=== PATIENT | female | born 1965 | race Caucasian/White ===

== ENCOUNTER 2020-10-21 00:11 | Outpatient (CLI) | payer MEDICARE, SELFPAY ==
[2020-10-21 17:38] LABS: SARS-CoV-2 RNA PCR Negative
== END 2020-10-21 00:12 | disposition home or self-care (01) ==
LOC: ANHCOVIDDT 00:11
PROVIDERS: PCP Physician Assistant; Visit Provider Internal Medicine Gastroenterology
DX: Z01.812 Encounter for preprocedural laboratory examination (principal); Z20.822 Contact with and (suspected) exposure to COVID-19
CPT/HCPCS: C9803; U0003; U0005

== ENCOUNTER 2020-10-24 00:42 | Day surgery (SDC) | payer MEDICARE, SELFPAY ==
[2020-10-10 12:14] VITALS: BMI 33.3
--- NOTE | 2020-10-10 12:34 | PC.NURSE ---
During pre-op interview, patient stated she takes Meloxicam 15 mg daily. Pt. unaware of whether or not to hold prior to colonoscopy as she did not have Dr. Antoine paperwork and instructions in front of her. Instructed patient to call Dr. Antoine's office and inquire about need to hold Meloxicam prior to procedure. Pt. states she will call office. Aleksander Craven RN.
[2020-10-24 11:23] VITALS: BP 182/86; PULSE 66; RESP 18; TEMP 36.7; O2SAT 99; BMI 33.5
[2020-10-24] MEDS: LACTATED RINGERS 1,000 ML 150 ML IV CONT (11:28)
--- NOTE | 2020-10-24 11:56 | PM.IMHP ---
H&P: [facility] History of Present Illness Date/Time: 10/24/20 11:56 Chief Complaint: Reason for visit is colonoscopy. Narrative: Reason for visit is colonoscopy. This very pleasant lady seen in consultation request the primary physician. Impression: Screening colonoscopy. Patient has a history of non adenomatous polyps. HTN. HLD. Tobacco abuse. Obesity. Recommendation: Colonoscopy. History: This very pleasant lady's here for screening colonoscopy. GI review systems negative. She has a previous history of non adenomatous colon polyps. She is here for colonoscopy. Physical examination: General: very pleasant patient in no acute distress. HEENT: Head was normocephalic sclerae is clear mouth without masses neck was supple. Heart: Rate rhythm regular without S3 or S4. Lungs: Occasional expiratory wheeze. Abdomen: Soft with no guarding or rigidity. Bowel sounds were active. Neurologic: Cranial nerves 2 through 12 intact. No focal defects. No clonus. Musculoskeletal system: Revealed no joint tenderness or swelling no muscle atrophy. Extremities: Reveal no significant edema. Skin: Warm and dry with normal turgor. Mental status: intact. Patient is alert and oriented. Review of Systems Review of Systems: All systems reviewed & are unremarkable except as noted in HPI and below PMFSH Past Medical History Medical History (Updated 10/24/20 @ 11:56 by Willem Antoine DO) Hyperlipidemia Hypertension Obesity Tobacco abuse Surgical History Surgical History (Updated 10/24/20 @ 11:56 by Willem Antoine DO) H/O colonoscopy with polypectomy History of hysterectomy Social History Social History Smoking packs per day: 1 Smoking cigarettes per day: 20.0 Years smoked: 39 Smoking pack-years: 39.00 Smoking status: Current every day smoker Tobacco type: cigarettes Alcohol use details: very rarely Living arrangements: with family Gender identity (if verbalized by the patient): Female Spiritual care concerns: No Meds Home Medications and Allergies Home Medications Medication Instructions Recorded Confirmed Type ascorbic acid (vitamin C) [Vitamin 500 mg PO DAILY 10/10/20 10/10/20 History C] cinnamon bark [Cinnamon] 500 mg PO DAILY 10/10/20 10/10/20 History estradiol 0.5 mg PO QPM 10/10/20 10/10/20 History gabapentin 600 mg PO TID 10/10/20 10/10/20 History lisinopril 40 mg PO QPM 10/10/20 10/10/20 History lovastatin 20 mg PO QPM 10/10/20 10/10/20 History meloxicam 15 mg PO DAILY 10/10/20 10/24/20 History turmeric 400 mg PO DAILY 10/10/20 10/10/20 History vit C-vit [id number] 1 cap PO DAILY 10/10/20 10/10/20 History [Ocuvite] Allergies Allergy/AdvReac Type Severity Reaction Status Date / Time Aminoglycosides Allergy Unknown Rash Verified 10/24/20 11:12 bacitracin Allergy Unknown Rash Verified 10/24/20 11:12 NEOMYCIN SULFATE (Generic Allergy Unknown Y Uncoded 10/24/20 11:12 Allergy) POLYMYXINBSULF Allergy Unknown Rash Uncoded 10/24/20 11:12 Vital Signs Vital Signs - 24 hr 10/24/20 11:23 Temperature 36.7 C Pulse Rate 66 Respiratory Rate 18 Blood Pressure 182/86 H Pulse Oximetry 99
[2020-10-24 12:16] VITALS: BP 138/76; PULSE 86; RESP 21; O2SAT 99
[2020-10-24 12:26] VITALS: BP 150/76; PULSE 83; RESP 21; O2SAT 98
[2020-10-24 12:36] VITALS: BP 147/83; PULSE 61; RESP 24; O2SAT 99
== END 2020-10-24 13:01 | disposition home or self-care (01) ==
PROVIDERS: PCP Physician Assistant; Visit Provider Internal Medicine Gastroenterology
PROC: 0DJD8ZZ Inspection of Lower Intestinal Tract, Via Natural or Artificial Opening Endoscopic (ICD-10-PCS; CPT 45378; principal; 2020-10-24 12:00)
DX: Z12.11 Encounter for screening for malignant neoplasm of colon (principal); K63.5 Polyp of colon; I10 Essential (primary) hypertension; E78.5 Hyperlipidemia, unspecified; E66.9 Obesity, unspecified; Z68.33 Body mass index [BMI] 33.0-33.9, adult; F17.210 Nicotine dependence, cigarettes, uncomplicated
CPT/HCPCS: 45380; 88305; J2704; J7120

== ENCOUNTER → 2020-11-29 17:25 | Outpatient (CLI) | payer MEDICARE, SELFPAY ==
--- NOTE | ~2020-11-29 | MM_ITS ---
EXAMINATION: MM screening [facility] BI w ramiro HISTORY: Screening TECHNIQUE: Craniocaudal and mediolateral oblique 3-D tomosynthesis images were obtained and synthetic 2-D images were generated. CAD analysis was submitted and interpreted. COMPARISON: Comparison to multiple prior studies sequentially, with oldest reviewed study dated 02/2015. BREAST PARENCHYMAL COMPOSITION: There are scattered areas of fibroglandular density. FINDINGS: There is no evidence of suspicious mass, calcification, or architectural distortion to sugg est malignancy in either breast. There has been no suspicious interval change. IMPRESSION: 1. No mammographic evidence of malignancy. 2. Recommend routine screening mammography in one year. BI-RADS Category 1: Negative Reviewed, dictated and finalized at location A. AGE [employer]
--- NOTE | ~2020-11-29 | DEXA_ITS ---
Bone Density Report Name: Berna Lujan Age: 55 Sex: Female Ethnicity: White Date of : 1965 Indication: monitoring treatment; hysterectomy; postmenopausal Referring Provider: Xiao*Sarai Hernandez Study: Bone densitometry was performed. Exam Date: November 29, 2020 Accession number: [id number] Bone Density: Region BMD T-score Z-score Classification AP Spine (L1-L4) 1.541 4.5 5.6 Normal Femoral Neck (Left) 1.061 1.9 3.0 Normal Total Hip (Left) 1.205 2.2 2.9 Normal Femoral Neck (Right) 0.989 1.3 2.4 Normal Total Hip (Right) 1.202 2.1 2.9 Normal Total Hip Mean 1.204 2.2 2.9 Normal World Health Organization criteria for BMD impression classify patients as: Normal (T-score at or above -1.0), Osteopenia (T-score between -1.0 and -2.5), or Osteoporosis (T-score at or below -2.5). 10-year Fracture Risk: FRAX not reported because: All T-scores for Spine Total, Hip Total, Femoral Neck at or above -1.0 Treated for osteoporosis Previous Exams: Region Exam Age BMD T-score BMD Change BMD Change Date g/cm2 vs Baseline vs Previous AP Spine(L1-L4) 11/29/2020 55 1.541 4.5 0.324* 0.186* 07/11/2016 50 1.355 2.8 0.138* 0.073* 06/18/2013 47 1.282 2.1 0.065* 0.100* 05/29/2010 44 1.182 1.2 -0.035* -0.035* 08/10/2005 39 1.217 1.5 Total Hip(Left) 11/29/2020 55 1.205 2.2 -0.006 -0.023 07/11/2016 50 1.229 2.3 0.017 0.005 06/18/2013 47 1.224 2.3 0.012 0.104* 05/29/2010 44 1.120 1.5 -0.092* -0.092* 08/10/2005 39 1.212 2.2 Total Hip(Right) 11/29/2020 55 1.202 2.1 0.085* 0.023 07/11/2016 50 1.179 1.9 0.062* 0.025 06/18/2013 47 1.154 1.7 0.037* 0.076* 05/29/2010 44 1.078 1.1 -0.039* -0.039* 08/10/2005 39 1.117 1.4 *Denotes significance at 95% confidence level, LSC for AP Spine = 0.022 g/cm2, LSC for Total Hip = 0.027 g/cm2 Clinical Information Provided by Patient: Smokes Is being treated for osteoporosis Has used the following medications: HRT (i.e. estrogen/hormone therapy), Vitamin D Has the following medical conditions: Hysterectomy Patient maximum height was 61.5 Menopause Age: 26 No regular weight bearing exercise Drinks caffeinated beverages Onset of menses at age 11 Number of children 3
== END ==
PROVIDERS: Visit Provider Nurse Practitioner
DX: Z12.31 Encounter for screening mammogram for malignant neoplasm of breast (principal); Z78.0 Asymptomatic menopausal state
CPT/HCPCS: 77063; 77067; 77080

== ENCOUNTER 2021-12-13 12:38 | Outpatient (CLI) | payer MEDICARE, SELFPAY ==
--- NOTE | ~2021-12-13 | MM_ITS ---
EXAMINATION: MM screening [facility] BI w ramiro HISTORY: Screening mammogram TECHNIQUE: Craniocaudal and mediolateral oblique 3-D tomosynthesis images were obtained and synthetic 2-D images were generated. CAD analysis was submitted and interpreted. COMPARISON: 11/29/2020, 09/16/2019, 07/24/2018 BREAST PARENCHYMAL COMPOSITION: There are scattered areas of fibroglandular density. FINDINGS: There is no suspicious mass, calcification, or architectural distortion to suggest malignan cy in either breast. There has been no suspicious interval change. IMPRESSION: 1. No mammographic evidence of malignancy. 2. Recommend routine screening mammography in one year. BI-RADS Category 1: Negative Reviewed, dictated and finalized at location A.
== END 2021-12-13 12:39 | disposition home or self-care (01) ==
LOC: ANHIMG 12:40
PROVIDERS: Visit Provider Nurse Practitioner
DX: Z12.31 Encounter for screening mammogram for malignant neoplasm of breast (principal)
CPT/HCPCS: 77063; 77067

== ENCOUNTER → 2022-10-08 08:26 | Outpatient (CLI) | payer MEDICARE, SELFPAY ==
--- NOTE | ~2022-10-08 | MR_ITS ---
EXAMINATION: MR lumbar spine wo/w con DATE: 10/08/2022 09:30 INDICATION: Lumbago TECHNIQUE: Magnetic resonance imaging (MRI) of the lumbar spine was performed without and with 19 mL Multihance intravenous contrast. Sequences included sagittal T2-weighted FSE, sagittal T2-weighted FS FSE, and sagittal and axial T1-weighted FSE. Postcontrast sequences included axial T2-weighted FSE, sagittal T1-weighted FSE, and axial and sagittal T1-weighted FS FSE. COMPARISON: Lumbar spine radiographs dated 08/11/2018 FINDINGS: 10 degrees thoracolumbar levoscoliosis. Metallic magnetic field artifact associated with interbody mini ne graft cages for anterior spinal fusion at L5-S1. Minimal likely physiologic anterior wedging at L1 . Remaining lumbar vertebral body heights are normal. Severe disc height loss with right-sided predom inance at L2-L3 and left-sided predominance at L4-L5 with associated fibrovascular degenerative endpl ate changes. Marrow signal is otherwise unremarkable. Moderate disc height loss at T11-T12, L1-L2 and L3-L4. Mild disc height loss at T9-T10 and T10-T11. The conus medullaris terminates at L1. There is normal signal in the caudal spinal cord with no abnormally enhancing lesions. Mild non-masslike, like ly reactive edema and enhancement in the soft tissues alongside the severely narrowed right-sided the L2-L3 and left side of the L4-L5 disc spaces. Paravertebral soft tissues are otherwise unremarkable. The following disc levels are specifically discussed: T11-T12: A limited assessment on sagittal images without corresponding axial images demonstrate a dis c bulge with annular fissure and small right paracentral disc extrusion with disc material extending up to 4 mm caudal to the level of the superior endplate of T12. Mild left-sided and moderate right-si ded facet osteoarthritis. There is no neural foraminal stenosis. There is mild central canal stenosis . T12-L1: Disc is minimally bulging. There is mild right and moderate left facet joint osteoarthritis. There is no neural foraminal stenosis. There is no central canal stenosis. L1-L2: Disc is bulging with superimposed annular fissure and small central disc extrusion with disc m aterial extending up to 5 mm caudal to the level of the superior endplate of L2. There is mild bilate ral facet joint osteoarthritis. There is mild to moderate bilateral neural foraminal stenosis. There is mild central canal stenosis. L2-L3: Disc is bulging with annular fissure. There is moderate bilateral facet joint osteoarthritis. There is mild left and moderate right neural foraminal stenosis. There is moderate central canal sten osis. L3-L4: Disc is bulging with annular fissure and small central disc extrusion with disc material exten ding up to 4 mm caudal to the level of the superior endplate of L4. There is hypertrophy of the ligam entum flavum. There is moderate left and mild to moderate right facet joint osteoarthritis. There is moderate left and mild to moderate right neural foraminal stenosis. There is moderate central canal stenosis. L4-L5: Disc is bulging with annular fissure. There is hypertrophy of the ligamentum flavum. There is moderate right and moderate to severe left facet joint osteoarthritis. There is moderate bilateral, l eft greater than right neural foraminal stenosis. There is moderate central canal stenosis. L5-S1: Anterior spinal fusion. There is moderate left and mild right facet joint osteoarthritis. Post erior decompression with left-sided hemilaminotomy. There is mild bilateral neural foraminal stenosis . There is no central canal stenosis. IMPRESSION: 1. Mild thoracolumbar levoscoliosis with severe spondylosis. 2. Instrumented anterior spinal fusion and left-sided hemilaminotomy at L5-S1. Reviewed, dictated and finalized at location A. Electronically si
== END ==
PROVIDERS: PCP Physician Assistant; Visit Provider Nurse Practitioner Family
DX: M54.50 Low back pain, unspecified (principal); M41.85 Other forms of scoliosis, thoracolumbar region; M43.06 Spondylolysis, lumbar region; Z98.1 Arthrodesis status
CPT/HCPCS: 72158; A9577

== ENCOUNTER → 2022-12-17 10:04 | Outpatient (CLI) | payer MEDICARE, SELFPAY ==
--- NOTE | ~2022-12-17 | MM_ITS ---
EXAMINATION: MM screening [facility] BI w ramiro HISTORY: Screening TECHNIQUE: Craniocaudal and mediolateral oblique 3-D tomosynthesis images were obtained and synthetic 2-D images were generated. CAD analysis was submitted and interpreted. COMPARISON: Comparison to multiple prior studies sequentially, with oldest reviewed study dated 06/30. BREAST PARENCHYMAL COMPOSITION: The breasts are almost entirely fatty. FINDINGS: There is no evidence of suspicious mass, calcification, or architectural distortion to sugg est malignancy in either breast. There has been no suspicious interval change. IMPRESSION: 1. No mammographic evidence of malignancy. 2. Recommend routine screening mammography in one year. BI-RADS Category 1: Negative Reviewed, dictated and finalized at location A.
== END ==
PROVIDERS: PCP Physician Assistant; Visit Provider Nurse Practitioner
DX: Z12.31 Encounter for screening mammogram for malignant neoplasm of breast (principal)
CPT/HCPCS: 77063; 77067